=== PATIENT | female | born 2000 | race Two or more races ===

== ENCOUNTER 2024-09-07 03:39 | Emergency (ER) | payer OTHER, MEDICAID, SELFPAY ==
[2024-09-07 03:42] VITALS: BMI 37.1
[2024-09-07 03:51] VITALS: BP 132/74; PULSE 67; RESP 18; TEMP 37.1; O2SAT 100
[2024-09-07] MEDS: FAMOTIDINE 20 MG TABLET 40 MG PO (04:33)
[2024-09-07] MEDS: DEXAMETHASONE SOD PHOS INJ 10 MG/ML VIAL PO (04:35)
--- NOTE | 2024-09-07 05:07 | PD.EDALLER ---
ED Allergic Reaction RME/HPI General Chief complaint: Allergic Reaction Stated complaint: RASH TO FACE Time Seen by Provider: 09/07/24 04:01 Arrival date/time: 09/07/24 03:39 RME / HPI RME / HPI narrative: 24-year-old female presents to the ED with a 2-day history of possible allergic reaction. She woke up Friday morning with itching of her skin as well as itching and numbness of her face and mouth. She denies any new foods, soaps, medications etc. She states she is allergic to Benadryl but took 1 tablet anyway and feels a little better. She denies any difficulty breathing, difficulty swallowing, tongue swelling or lip swelling. She is able to tolerate Claritin or Zyrtec. Related Data Previous Rx's ?Medication ?Instructions ?Recorded dexamethasone 6 mg tablet 6 mg PO QDAY 4 days #4 tabs 09/07/24 famotidine 20 mg tablet 20 mg PO BID 7 days #14 tabs 09/07/24 loratadine 10 mg tablet (Allergy 10 mg PO QDAY PRN allergic 09/07/24 Relief (loratadine)) symptoms #30 tabs Allergies Allergy/AdvReac Type Severity Reaction Status Date / Time amoxicillin (From Augmentin) Allergy Unknown Rash Verified 09/07/24 03:41 brompheniramine Allergy Unknown SWELLING, Verified 09/07/24 03:41 RASH clavulanic acid (From Allergy Unknown Rash Verified 09/07/24 03:41 Augmentin) dextromethorphan Allergy Unknown SWELLING, Verified 09/07/24 03:41 RASH phenylpropanolamine Allergy Unknown SWELLING, Verified 09/07/24 03:41 RASH pseudoephedrine Allergy Unknown SWELLING, Verified 09/07/24 03:41 RASH diphenhydramine (From Allergy Verified 09/07/24 03:42 Benadryl) Review of Systems Review of Systems Systems Reviewed: All systems reviewed, normal except as documented Past Medical History Past Medical History NEUROLOGIC: Negative Neurological Disorders or Seizures CARDIAC: Negative Cardiac Disorders or Congestive Heart Failure RESPIRATORY: Positive Pneumonia; Negative Chronic Obstructive Pulmonary Disease (COPD) GASTROINTESTINAL: Negative Gastrointestinal Disorders GENITOURINARY: Negative Genitourinary Disorders or Renal Disease REPRODUCTIVE: Positive Previous Pregnancies; Negative Pelvic Inflammatory Disease MUSCULOSKELETAL: Positive Musculoskeletal Disorders ENDOCRINE: Negative Endocrine Disorders, Diabetes Mellitus Type 1 or Diabetes Mellitus Type 2 HEMATOLOGIC: Negative Blood Disorders OTHER HISTORY: Positive Hospitalization (Pneumonia); Negative Autoimmune Disease, Blood Transfusions, Blood Transfusion Reaction, Anesthesia Reactions, MRSA, Clostridium Difficile or Cancer Family History FAMILY HISTORY: Positive Family Cardiac Disorders (Mom HTN), Family Cancer and Family Surgery; Negative Family Psychiatric Problems, Family Respiratory Disorders, Family Gastrointestinal Problems or Family Anesthesia Reaction Surgical History SURGICAL: Positive Section (x1) Social History SMOKING STATUS: Never smoker SECOND HAND EXPOSURE: No SUBSTANCE USE: does not use ED Exam Narrative Physical exam: Alert and oriented 24-year-old female, no acute distress. Mild erythema noted to the anterior upper chest and neck. No urticarial rash noted to her extremities. Lungs are clear, no wheezing or stridor noted. No swelling noted to the lips, tongue, oropharynx. Cardiovascular regular rate and rhythm without murmurs. Course Course Course Narrative: Patient was given Decadron 10 mg p.o. and Pepcid 40 mg p.o. Quality Measures none Orders Category Date Time Status Dexamethasone Inj [Decadron Inj] Med 09/07/24 04:13 Discontinued 10 mg PO X1 ONE Famotidine [Pepcid] Med 09/07/24 04:13 Discontinued 40 mg PO X1 ONE Vital Signs Vital signs: Vital Signs Temperature 98.8 F 09/07/24 03:51 Pulse Rate 67 09/07/24 03:51 Respiratory Rate 18 09/07/24 03:51 Blood Pressure 132/74 H 09/07/24 03:51 Pulse Oximetry (%) 100 09/07/24 03:51 Oxygen Delivery Method Room Air 09/07/24 03:51 Allergic Reaction MDM Narrative MDM Narrative:: 24-year-old female presents to the ED with a 2-day history of possible allergic reaction. She woke up Friday morning with itching of her skin as well as itching and numbness of her face and mouth. She denies any new foods, soaps, medications etc. She states she is allergic to Benadryl but took 1 tablet anyway and feels a little better. She denies any difficulty breathing, difficulty swallowing, tongue swelling or lip swelling. She is able to tolerate Claritin or Zyrtec. Alert and oriented 24-year-old female, no acute distress. Mild erythema noted to the anterior upper chest and neck. No urticarial rash noted to her extremities. Lungs are clear, no wheezing or stridor noted. No swelling noted to the lips, tongue, oropharynx. Cardiovascular regular rate and rhythm without murmurs. Patient was given Decadron 10 mg p.o. and Pepcid 40 mg p.o. Patient will be prescribed Decadron 6 mg p.o. x 4 days, Pepcid 20 mg p.o. twice daily, and Claritin 10 mg p.o. daily. Patient data External records reviewed:: None Clinical information provided by:: patient Social determinants that could affect healthcare access:: none Patient has the following chronic illnesses:: History of urticaria How is presenting disease/condition affected by chronic disease/condition?: exacerbated by Evaluation data The following diagnostics were reviewed and interpreted by me:: other (specify) (N/A) Lab and/or radiology exams considered but not ordered:: N/A Interpretation Summary: N/A Medications / Prescriptions Medications or Prescriptions considered but not ordered:: N/A Medication administrations:: Medication Administration History Discontinued Medications Dexamethasone Sodium Phosphate (Dexamethasone Sod Phos Inj 10 Mg/Ml Vial) 10 mg PO X1 ONE Stop: 09/07/24 04:14 Last Admin: 09/07/24 04:35 Dose: 10 mg Documented By: TOBIN Famotidine (Famotidine 20 Mg Tablet) 40 mg PO X1 ONE Stop: 09/07/24 04:14 Last Admin: 09/07/24 04:33 Dose: 40 mg Documented By: TOBIN Decadron 10 mg p.o. and famotidine 40 mg p.o. Consultations Consultation(s) initiated? (list below): No Diagnosis Differential Diagnosis allergic reaction: anaphylaxis, allergic reaction, angioedema, adverse reaction to drug and urticaria Most likely diagnosis given after review of the tests above:: Urticaria versus angioedema Admission Indicated Admission indicated?: not indicated Explain why admission is indicated or not indicated:: Patient is stable for discharge Admission Request Was there a request for admission?: No Admission Attestation Admission request attestation: N/A Disposition Plan Disposition Plan: Discharge Discharge Attestation Discharge Attestation: The patient and all family members were given an opportunity to ask questions and understood the discharge instructions. Discharge instructions specifically effects, indications for sooner follow up or return to the emergency department, and the expected course of current diagnosis. Patient condition: Stable Discharge Plan Plan Patient Disposition: HOME (Self Care) Discharge Disposition comment: Stable and improved Prescriptions/Referrals Prescriptions/Med Rec: New dexamethasone 6 mg tablet 6 mg PO QDAY 4 Days Qty: 4 0RF Rx Instructions: Begin taking on the morning of 09/08/2024 famotidine 20 mg tablet 20 mg PO BID 7 Days Qty: 14 0RF loratadine [Allergy Relief (loratadine)] 10 mg tablet 10 mg PO QDAY PRN (Reason: allergic symptoms) Qty: 30 0RF Rx Instructions: Patient indicates tolerance to this medication. Problem List Clinical Impression: Urticaria, Angioedema Patient/Caregiver Discharge Instructions Education Materials: ED Angioedema, ED Hives (Adult) Additional Instructions: Take the medications as prescribed for allergy type symptoms. Follow-up with your primary care physician in 24 to 48 hours. Return to the ED for any new or worsening symptoms. Print Language: Bruneian Stand Alone Forms: Danita Award Info., Patient Portal Info Letter PA/COMPENSATION ADMINISTRATOR Supervising Physician PA/COMPENSATION ADMINISTRATOR Supervising Physician: Dr Scott
== END 2024-09-07 05:44 | disposition home or self-care (01) ==
LOC: SERX 06:20
PROVIDERS: Emergency Provider Emergency Medicine; PCP Family Medicine
DX: T78.3XXA Angioneurotic edema, initial encounter (principal)
CPT/HCPCS: 99282; J1100; A9270